=== PATIENT | male | born 1940 | race Caucasian/White ===

== ENCOUNTER 2016-12-12 09:16 | Inpatient (IN) | payer MEDICARE, BC ==
[~2016-12-12] VITALS: Ht 188 cm; Wt 117.7 kg
--- NOTE | ~2016-12-12 | DS ---
ADMIT: 12/12/2016 RM/LOC: 312 [facility] MR#: [id number] [address] [address] SHAYE VYAS [address] [place] [address] General Discharge Summary SEX: M AGE: 76 : 1940 ADMISSION DATE: 12/12/2016 DISCHARGE DATE: 12/18/2016 SERVICE: Neurosurgery. REASON FOR ADMISSION: 1. Right-sided basal ganglia hemorrhage. 2. Intraventricular hemorrhage. CONSULTS: Saad Lance MD, with [facility]. HOSPITAL COURSE: Mr. Vyas is a very pleasant, 77-year-old gentleman who was in his normal state of health the morning of admission. His left for an errand around 8:00 a.m. and he was fine. When she returned around 9:00 a.m., she found him with left facial droop and left-sided weakness. EMS was called and he was brought to [facility] emergency room. A noncontrast head CT was obtained and revealed a large right cerebral intraparenchymal hemorrhage with an intraventricular hemorrhage. He was on Plavix and reversal protocol was initiated. He was admitted to the intensive care unit for close monitoring and care. Dr. Lance was consulted for co- management of his comorbidities. Hospital day #2, he was awake and alert. He was afebrile, and his vital signs were stable. He had no movement of his left arm and minimal movement of his left leg. His repeat head CT revealed stable intracranial hemorrhage. He was working with Physical Therapy and Occupational Therapy and was tolerating this quite well. He was transferred out of the intensive care unit to the Med/Surg status. Hospital day #3, he was awake and alert, his vital signs were stable, he had minimal movement of his left foot and leg. He had left arm plegia. An ultrasound of his left upper arm was obtained due to swelling and this was negative for DVT. Hospital day #4, he remained unchanged with no movement of his left arm and minimal movement of his left leg. He was awake and alert. He was afebrile, and his vital signs were stable. He continued to work with Physical Therapy, Occupational Therapy, and Speech Therapy. He continued with some dysphagia. Hospital day #5, he was awake and alert, his vital signs were stable. He continued with the left facial droop, left arm paresis, and left leg was 1/5. He was started on DVT prophylaxis. He continued to work with the therapies. Hospital day #6, his echo revealed mild AR and MR with EF of 60%. His repeat head CT remained stable. He was afebrile, and his vital signs were stable. He was awake and alert, he moved his right side without difficulty, his left leg had minimal movement. He continued to work with therapies. Hospital day #7, he was awake and alert. He was afebrile. He moved his right side without difficulty. He had left side plegia with the ability to move his toes minimally. He was evaluated by the inpatient rehabilitation unit and deemed to be a good candidate for their inpatient rehabilitation unit with plans to return to as much of his prior function of living status as able. On the day of discharge, he was deemed medically fit for transfer to the inpatient rehabilitation unit. DISCHARGE CONDITION: Good. ADMIT: 12/12/2016 RM/LOC: 312 [facility] MR#: [id number] [address] [address] SHAYE VYAS [address] [address] General Discharge Summary SEX: M AGE: 76 : 1940 MEDICATIONS: 1. Colace 100 mg p.o. b.i.d. 2. Hydrochlorothiazide 25 mg p.o. daily. 3. Milk of magnesia 10 mL p.o. daily. 4. Norvasc 10 mg p.o. daily. 5. Senokot one tab p.o. b.i.d. 6. Dulcolax 10 mg suppository rectally daily. 7. Heparin 5000 units subcutaneous q.8 hours. 8. Maalox 30 mL p.o. q.6 hours p.r.n. 9. Milk of magnesia 10 mL p.o. daily p.r.n. 10.Norvasc 5 mg p.o. daily p.r.n. 11.Tylenol 650 mg tablet, liquid, or suppository p.r.n. 12.DuoNeb 3 mL q.4 hours p.r.n. 13.Nitrostat 0.4 mg sublingual q.5 minutes x3 p.r.n. 14.Pravastatin 40 mg q.p.m. 15.Lisinopril 20 mg daily. 16.Famotidine 40 mg daily. 17.Multivitamin daily. DISCHARGE INSTRUCTIONS: Per Dr. Wilcox: He can have a diet per Speech recommendations. He is a fall risk. He is to continue physical therapy, occupational therapy, and speech therapy. He will call with any questions or concerns including neurological worsening, signs or symptoms of infection, or any other issues. FOLLOWUP: He will follow up with Dr. Wilcox in clinic in 1 month. DISPOSITION: He was discharged to the inpatient rehabilitation unit. Total [id number] time for the discharge planning and care coordination was 30 minutes. Tami Shoemaker APRN / Bossman Wilcox MD / savage JOB #: [id number] CC: Bossman Wilcox MD, Attending Physician Bossman Wilcox MD, Family Physician
--- NOTE | ~2016-12-12 | ECH ---
Transthoracic Echocardiography Report (TTE) Demographics Patient Name SHAYE PARDO Date of Study 12/16/2016 Patient Number [id number] Visit Number [id number] Date of 1940 Room Number 312 Accession Number [id number] Gender Male Age 76 year(s) Referring Casi Patterson MD Reconciliation Analyst Katia Barron Physician RDCS Physician Interpreting Eladio Fischer [employer] Advisor Physician Supervising Ordering Physician Casi Patterson MD, MD/P Nurse Stress Compressor Mechanic Conclusions Summary Technically adequate exam. The estimated left ventricular ejection fraction is 60%. Diastolic assessment reveals Grade I diastolic dysfunction. The right atrium is mild dilated. Mild eccentric mitral regurgitation by color Doppler. There is mild aortic regurgitation by color Doppler. Procedure Type of Study TTE procedure:Echo Complete SF. Procedure Date Date: 12/16/2016 Start: 08:38 AM Technical Quality: Adequate visualization Indications:Murmur and Hypertension. Additional Indications:Hemorrhage CVA Appropriate Use Criteria: 9 Height: 74 inches Weight: 262.01 pounds BSA: 2.44 m Rhythm: Sinus bradycardia HR: 50 bpm BP: 142/60 mmHg M-Mode/2D Measurements LV Diastolic Dimension: 5.3 cm LV Systolic Dimension: 3.3 cm LV Septum Diastolic: 0.77 cm LV PW Diastolic: 0.76 cm AO Root Dimension: 3.6 cm Cardiac Output: 5.69 l/min LA Dimension: 4.17 cm Cardiac Index: 2.33 l/min*m RV Diastolic Dimension: 3.81 cm LA volume index: 33 ml/m LVOT: 2.26 cm LVOT VTI: 28.4 cm RV Base: 3.7 cm LV Stroke volume: 113.87 ml RV Mid: 2.4 cm LV Stroke volume index: 46.67 ml/m TAPSE: 3.3 cm TDI-S': 23 cm/s Doppler Measurements AV Peak Velocity: 1.54 m/s MV Peak E-Wave: 0.81 m/s AV Peak Gradient: 9.49 mmHg MV Peak A-Wave: 0.94 m/s AV Mean Gradient: 4.8 mmHg MV E/A Ratio: 0.85 LVOT Peak Velocity: 1.24 m/s AV Area (Continuity):3.08 cm MV Deceleration Time: 435 msec TR Velocity:2.14 m/s PV Peak Velocity: 1.06 m/s TR Gradient:18.32 mmHg PV Peak Gradient: 4.52 mmHg Estimated RAP:3 mmHg Estimated PASP: 21.32 mmHg Estimated RVSP: 21 mmHg A' Septal Velocity: 0.11 m/s E' Septal Velocity: 0.05 m/s A' Lateral Velocity: 0.15 m/s E' Lateral Velocity: 0.12 m/s RA Area: 23.11 cm Findings Left Ventricle Normal left ventricle size and function. Diastolic assessment reveals Grade I diastolic dysfunction. Right Ventricle Normal right ventricle structure and function. Left Atrium Normal left atrial size. Right Atrium The right atrium is mild dilated. Mitral Valve Normal mitral valve structure and function. Mild eccentric mitral regurgitation by color Doppler. Aortic Valve Normal aortic valve structure and function. There is mild aortic regurgitation by color Doppler. Tricuspid Valve Normal tricuspid valve structure and function. Trivial tricuspid regurgitation by color Doppler. Normal pulmonary pressures. Pulmonic Valve Normal pulmonic valve structure and function. Mild-moderate pulmonic valve regurgitation by color Doppler. Pericardial Effusion No evidence of pericardial effusion. Miscellaneous Visualized portions of the aortic root and ascending aorta appear normal in size. Pleural Effusion No evidence of pleural effusion. Contractility Score LV regional wall motion:(0-Non visualized 1-Normal 2-Hypokinesis 3-Akinesis 4-Dyskinesis 5-Aneurysm) Signature
--- NOTE | 2016-12-13 10:22 | HP ---
ADMIT: 12/12/2016 RM/LOC: 303 [facility] MR#: [id number] [address] [address] SHAYE VYAS [address] [place] [address] History and Physical SEX: M AGE: 76 : 1940 DATE OF SERVICE: REASON FOR CONSULT: Intracranial hemorrhage. HISTORY OF PRESENT ILLNESS: The patient was found down and brought in as a stroke alert. He was found by his unable to move the left side of his body, but speaking and moving the right side of his body. PAST MEDICAL HISTORY: Hypertension, hyperlipidemia. He is on Plavix although his says he is on it because he had some bleeding problems, they were not exactly sure why he is on this. FAMILY HISTORY: No history of neurosurgical disease. SOCIAL HISTORY: Nonsmoker and nondrinker. Lives with his . REVIEW OF SYSTEMS: Complete review of systems was obtained and pertinent positives in history of present illness. PHYSICAL EXAM: VITAL SIGNS: Reviewed and charted on the T sheet. GENERAL: He is an otherwise healthy-appearing, but obese 76-year-old gentleman. HEENT: Atraumatic head. No scleral icterus. Clear oropharynx. LUNGS: Normal respiratory excursion. ABDOMEN: Soft and obese. EXTREMITIES: 2+ radial pulses. NEUROLOGICAL EXAM: MENTAL STATUS: He is awake, alert, and oriented x4. His speech is mildly dysphonic but no aphasia. CRANIAL NERVES: Cranial nerves II through XII are individually tested. He has some left-sided facial droop. He has a right-sided gaze deviation and ADMIT: 12/12/2016 RM/LOC: 303 [facility] MR#: [id number] [address] [address] SHAYE VYAS [address] [place] [address] History and Physical SEX: M AGE: 76 : 1940 preference with inability to move to the left. MOTOR EXAM: Motor exam reveals 5/5 strength with normal sensation and 2/4 deep tendon reflexes on the right. He has a flaccid left-sided hemiplegia that is areflexic with the exception of some 1/4 retained movement in the left leg without sensation on that side. ASSESSMENT AND PLAN: Mr. Vyas is a very pleasant gentleman with right-sided basal ganglial hemorrhage with some speckling and question of a small amount of intraventricular hemorrhage, likely hypertensive in nature. He is on Plavix, we will reverse that. This does not appear to be operative at this time, especially with his anticoagulants. We will put him up in the intensive care unit. Bossman Wilcox MD/ savage JOB #: [id number] CC: Bossman Wilcox, Attending Physician Bossman Wilcox, Family Physician
--- NOTE | 2016-12-18 15:34 | ER ---
ADMIT: 12/12/2016 RM/LOC: 303 [facility] MR#: [id number] [address] [address] EDVIN SHAYE Murdock [address] [place] [address] Emergency Room Report SEX: M AGE: 76 : 1940 DATE: 12/12/2016 ADDENDUM: This 76-year-old male coming in with left-sided weakness. He has suffered a bleed on his right side, he is on Plavix. We gave him 2 units of platelets. I have consulted Dr. Wilcox, he has came in to see the patient. He will send him to the unit, admit him. I also spoke with Dr. Lance, will consult. He has hypertension and hyperlipidemia that appears to be controlled as well. Lab is otherwise pending at this time. CONDITION ON DISCHARGE: Critical, but stable at this time. Sly Figueroa MD/ savage JOB #: [id number] CC: Bossman Wilcox MD, Attending Physician Bossman Wilcox MD, Family Physician
[2017-04-21] MEDS ORDERED: PRAVACHOL40 MG PO (15:44)
[2017-04-21] MEDS ORDERED: ZESTRIL DPS10 MG PO (15:44)
[2017-04-21] MEDS ORDERED: PLAVIX75 MG PO (15:44)
[2017-04-21] MEDS ORDERED: THERA1 EACH PO (15:45)
[2017-04-21] MEDS ORDERED: PEPCID40 MG PO (15:45)
[2017-04-21] MEDS ORDERED: NEURONTIN DPS600 MG PO (15:45)
[2017-04-21] MEDS ORDERED: FLONASE 0.05% D16 GM NS (15:46)
[2017-04-21] MEDS ORDERED: CLARITIN DPS10 MG PO (15:46)
[2017-04-21] MEDS ORDERED: VITAMIN D1000 UNI1 PO (15:46)
[2017-04-21] MEDS ORDERED: MIRALAX PACKET17 GM PO (15:47)
[2017-04-21] MEDS ORDERED: TYLENOL DPS325 MG PO (15:47)
== END 2016-12-18 10:50 | disposition short-term general hospital (02) | DRG 65 ==
LOC: ER 09:16 → 3ICU 10:30
PROVIDERS: ADMIT Neurological Surgery
PROC: 30233R1 Transfusion of Nonautologous Platelets into Peripheral Vein, Percutaneous Approach (ICD-10-PCS; principal; 2016-12-12)
PROC: 03HY32Z Insertion of Monitoring Device into Upper Artery, Percutaneous Approach (ICD-10-PCS; 2016-12-12)
DX: I62.9 Nontraumatic intracranial hemorrhage, unspecified (principal); G81.94 Hemiplegia, unspecified affecting left nondominant side; I10 Essential (primary) hypertension; E78.5 Hyperlipidemia, unspecified; R29.810 Facial weakness; E66.9 Obesity, unspecified; R01.1 Cardiac murmur, unspecified; T45.525A Adverse effect of antithrombotic drugs, initial encounter; E83.39 Other disorders of phosphorus metabolism; R13.10 Dysphagia, unspecified; Z86.73 Personal history of transient ischemic attack (TIA), and cerebral infarction without residual deficits; Z68.33 Body mass index [BMI] 33.0-33.9, adult; Z79.02 Long term (current) use of antithrombotics/antiplatelets

== ENCOUNTER 2016-12-18 09:16 | Inpatient (IN) | payer MEDICARE, BC ==
[~2016-12-18] VITALS: Ht 188 cm; Wt 110.7 kg
--- NOTE | 2016-12-28 20:02 | NUR ---
DAY SHIFT SUMMARY: SUP/ DENTURES TO EAT; MOD ASSIT FOR GROOMING; MAX ASSIST UPPER DRESSING; TOTAL ASSIST (2 STAFF) FOR LOWER DRESSING, TOILETING, BED/W/C/COMMODE TRANSFERS AND W/C PROPULSION; URINAL/PENIS MUST BE HELD IN PLACE BY STAFF AND URINAL EMPTIED; SOCIAL INTERACTION IS APPROPRIATE
--- NOTE | 2017-01-06 19:16 | NUR ---
DAY SHIFT SUMMARY: DENTURES AND SUPERVISION REQUIRED FOR SAFE EATING OF [facility] SOFT/NECTAR THICK DIET; MOD ASSIST OF 1 FOR GROOMING; MAX ASSIST FOR UPPER DRESSING; TOTAL ASSIST FOR LOWER DRESSING, TOILETING, ALL TRANSFERS PER GASTON LIFT, AND W/C PROPULSION; URINAL MUST BE HELD IN PLACE FOR URINATION; WEARS EYE GLASSES
--- NOTE | 2017-01-10 21:01 | NUR ---
DAY SHIFT SUMMARY: PT HAS MADE PROGRESS. MIN ASSIST FOR GROOMING; MOD ASSIST FOR DRESSING W/ ASSISTIVE DEVICES; STILL TOTAL ASSIST FOR TOILETING AND TRANSFERS EZ STAND AND 2 ASSIST REQUIRED-BUT HAS MUCH BETTER TRUNK CONTROL; TOTAL ASSIST FOR MANUAL W/C PROPULSION RT VERY LITTLE USE OF L ARM/HAND
--- NOTE | 2017-01-15 15:10 | DS ---
ADMIT: 12/18/2016 RM/LOC: 616 [facility] MR#: [id number] [address] [address] SHAYE PARDO [address] [place] [address] General Discharge Summary SEX: M AGE: 76 : 1940 ADMISSION DATE: 12/18/2016 DISCHARGE DATE: 01/11/2017 DISCHARGE DIAGNOSIS: Stroke 01.1, left body involvement, right brain, I61.0, nontraumatic intracerebral hemorrhage in hemisphere subcortical; 12/12/2016 is the onset. Comorbid conditions per initial H and P. Other diagnoses per hospital course below. HOSPITAL COURSE: Please see my initial H and P for details prior to transfer the IRU. Pain and bowel regimen were adjusted. Lab was monitored regularly. Dietitian followed to optimize nutrition. Pharmacy followed to optimize medication management. Heparin was continued for DVT prophylaxis, was eventually switched to Lovenox for DVT prophylaxis. Pepcid changed for decreasing risk of C. diff. Pravachol for hyperlipidemia. Adjusted bowel regimen. Adjusted DuoNebs, and Nitrostat no longer necessary. P.R.N. Norvasc no longer necessary. PVR initially high at 455, but then came down to 0. P.O. fluid encouraged due to azotemia. Hydrochlorothiazide reduced due to nonspecific low blood pressure readings. Low air loss mattress to prevent ulcers. Was given a 500 mL normal saline bolus due to azotemia and decreased p.o. fluid due to thickened liquids. Hydrochlorothiazide decreased, Norvasc decreased, Zestril decreased, all for nonspecific low blood pressure readings. Gabapentin started 300 mg p.o. at bedtime for insomnia and pain. 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 Vitamin D replaced. Oxycodone used for pain as needed. Pepcid discontinued. OxyIR switched to tramadol. Fioricet for headache. Gabapentin increased at night for insomnia and pain. Bowel regimen adjusted. Hydrochlorothiazide discontinued. Norvasc adjusted. Zestril decreased due to nonspecific low blood pressure readings. Vitamin D replaced at higher dosage due to low lab even on replacement. Diet upgraded on 12/27/2016, max soft solids. No mixed consistencies. TENS unit used for back pain. Zestril and Norvasc adjusted for hypertension. Ultram and Tylenol scheduled for pain, seemed to work well for him. Fioricet no longer necessary. IV fluids no longer necessary as he was drinking enough fluid to maintain his renal function. Zestril adjusted for hypertension, became a problem. Bowel regimen again adjusted. Ritalin tried decreasing, but he did worsen so it was increased back to where we were on. Norvasc decreased to 5 mg to help control of hypertension, again changed due to nonspecific low blood pressure readings. Norvasc changed and Zestril adjusted. Norvasc discontinued and Zestril increased to 10 mg b.i.d. Ritalin increased to 10 mg. Lab was checked prior to discharge. TEDs were switched ADMIT: 12/18/2016 RM/LOC: 616 [facility] MR#: [id number] [address] [place] [address] SHAYE PARDO [address] [place] [address] General Discharge Summary SEX: M AGE: 76 : 1940 to [employer] Vicks for nasal congestion. Diet adjusted to regular textured solids on 01/08/2017. Bowel regimen again adjusted for constipation. Thin liquids by 01/10/2017. The patient was medically stable at the time of discharge. Please see IRU interdisciplinary discharge summary for details regarding progress in therapy. DISCHARGE DISPOSITION: [facility] for continued subacute rehabilitation. DISCHARGE MEDICATIONS: Please see discharge med rec. FOLLOWUP: To be determined at discharge from subacute. Justino Villatoro MD/ [employer] JOB #: [id number] CC:
[2017-04-21] MEDS ORDERED: PLAVIX75 MG PO (15:44)
[2017-04-21] MEDS ORDERED: PRAVACHOL40 MG PO (15:44)
[2017-04-21] MEDS ORDERED: ZESTRIL DPS10 MG PO (15:44)
[2017-04-21] MEDS ORDERED: NEURONTIN DPS600 MG PO (15:45)
[2017-04-21] MEDS ORDERED: PEPCID40 MG PO (15:45)
[2017-04-21] MEDS ORDERED: THERA1 EACH PO (15:45)
[2017-04-21] MEDS ORDERED: FLONASE 0.05% D16 GM NS (15:46)
[2017-04-21] MEDS ORDERED: VITAMIN D1000 UNI1 PO (15:46)
[2017-04-21] MEDS ORDERED: CLARITIN DPS10 MG PO (15:46)
[2017-04-21] MEDS ORDERED: MIRALAX PACKET17 GM PO (15:47)
[2017-04-21] MEDS ORDERED: TYLENOL DPS325 MG PO (15:47)
== END 2017-01-11 12:05 | DRG 57 ==
LOC: 6IRU 10:50
PROVIDERS: ADMIT Physical Medicine & Rehabilitation
PROC: F06ZDZZ Swallowing Dysfunction Treatment (ICD-10-PCS; principal; 2016-12-18)
PROC: F08Z2FZ Grooming/Personal Hygiene Treatment using Assistive, Adaptive, Supportive or Protective Equipment (ICD-10-PCS; principal; 2016-12-18)
PROC: F07Z5FZ Bed Mobility Treatment using Assistive, Adaptive, Supportive or Protective Equipment (ICD-10-PCS; principal; 2016-12-18)
DX: I69.154 Hemiplegia and hemiparesis following nontraumatic intracerebral hemorrhage affecting left non-dominant side (principal); I69.191 Dysphagia following nontraumatic intracerebral hemorrhage; R41.4 Neurologic neglect syndrome; I69.198 Other sequelae of nontraumatic intracerebral hemorrhage; K21.9 Gastro-esophageal reflux disease without esophagitis; I10 Essential (primary) hypertension; E55.9 Vitamin D deficiency, unspecified; R13.10 Dysphagia, unspecified; E78.5 Hyperlipidemia, unspecified; M54.5 Low back pain; G89.29 Other chronic pain; R26.2 Difficulty in walking, not elsewhere classified; G47.00 Insomnia, unspecified; R40.0 Somnolence; F32.9 Major depressive disorder, single episode, unspecified; K59.00 Constipation, unspecified; R03.1 Nonspecific low blood-pressure reading; Z87.891 Personal history of nicotine dependence